=== PATIENT | female | born 1965 | race Caucasian/White ===

== ENCOUNTER → 2016-11-21 | Outpatient (CLI) | payer OTHER ==
[~2016-11-21] MED LIST: AUGMENTIN875 MG PO; NAPROSYN500 MG PO; NAPROXEN500 MG PO; NORCO 5/3251 TABLET PO; PRILOSEC20 MG PO
== END | disposition home or self-care (01) ==
LOC: NUC 08:16
DX: K21.9 Gastro-esophageal reflux disease without esophagitis (principal)
CPT/HCPCS: 78264; A9541

== ENCOUNTER 2017-09-19 21:09 | Inpatient (IN) | payer OTHER ==
[~2017-09-19] VITALS: Ht 157.5 cm; Wt 105.7 kg
[~2017-09-19 21:09] MED LIST changes: +OMEPRAZOLE40 M1 PO; -PRILOSEC20 MG PO
[2017-09-19 21:58] LABS: HEMATOCRIT 45.7 % (36.0-46.0); HEMOGLOBIN 15.7 G/DL (11.9-15.5); MCH 32.2 PG (29.0-34.0); MCHC 34.4 G/DL (30.0-36.0); MCV 93.6 FL (83-99); PLATELET COUNT 236 K/uL (156-360); RBC DIS.WIDTH-CV 13.7 % (11.8-14.6); RBC DIS.WIDTH-SD 46.7 % (39-53); RED BLOOD COUNT 4.88 M/uL (3.80-5.20); WHITE BLOOD COUNT 9.1 K/uL (4.1-10.2)
[2017-09-19 22:15] LABS: CHLORIDE 108 mEq/L (99-109); POTASSIUM 3.6 mEq/L (3.7-5.4); SODIUM 143 mEq/L (136-147)
[2017-09-19 22:17] LABS: GLUCOSE 120 mg/dL (70-99)
[2017-09-19 22:19] LABS: TROP-I INTERPRETATION NEGATIVE; TROPONIN-I 0.08 ng/mL (0.0-0.30)
[2017-09-19 22:21] LABS: CREATININE 0.7 mg/dL (0.6-1.3); GFR ESTIMATE (CALCULATED) > 59 mL/min/
[2017-09-19 22:22] LABS: UREA NITROGEN (BUN) 7 mg/dL (9-23)
[2017-09-19] MEDS ORDERED: LOSARTAN POTASS50 MG PO (23:17)
[2017-09-19] MEDS ORDERED: CYANOCOBALAM1000 MCG PO (23:19)
[2017-09-19] MEDS ORDERED: IRON325 M1 PO (23:20)
[2017-09-20 04:54] LABS: MCH 32.1 PG (29.0-34.0); MCHC 34.1 G/DL (30.0-36.0); PLATELET COUNT 243 K/uL (156-360); RBC DIS.WIDTH-CV 13.8 % (11.8-14.6); RBC DIS.WIDTH-SD 46.7 % (39-53); RED BLOOD COUNT 4.68 M/uL (3.80-5.20); WHITE BLOOD COUNT 10.3 K/uL (4.1-10.2)
[2017-09-20 04:55] LABS: CHLORIDE 108 mEq/L (99-109); POTASSIUM 3.8 mEq/L (3.7-5.4); SODIUM 142 mEq/L (136-147)
[2017-09-20 04:57] LABS: GLUCOSE 110 mg/dL (70-99)
[2017-09-20 05:01] LABS: CREATININE 0.7 mg/dL (0.6-1.3); GFR ESTIMATE (CALCULATED) > 59 mL/min/
[2017-09-20 05:02] LABS: UREA NITROGEN (BUN) 7 mg/dL (9-23)
[2017-09-20 05:07] LABS: TROP-I INTERPRETATION POSITIVE
[2017-09-20 05:10] LABS: TROPONIN-I 3.43 ng/mL (0.0-0.30)
[2017-09-20 05:38] LABS: ALBUMIN 3.7 G/DL (3.2-4.8); ALKALINE PHOSPHATASE 48 IU/L (3-129); ALT (GPT) 27 IU/L (3-49); AST (GOT) 27 IU/L (2-34); LIPASE 9 U/L (1.0-51.0); TOTAL BILIRUBIN 0.3 MG/DL (0.0-1.0); TOTAL PROTEIN 6.4 G/DL (6.4-8.3)
[2017-09-20 06:28] LABS: PTT 31.7 SEC (25-37)
[2017-09-20 10:16] LABS: TROP-I INTERPRETATION POSITIVE; TROPONIN-I 6.11 ng/mL (0.0-0.30)
[2017-09-20 12:49] LABS: INTER. NORMALIZED RATIO 1.1
[2017-09-20 13:09] VITALS: BP 133/94
[2017-09-20 13:13] LABS: PTT 182.8 SEC (25-37)
[2017-09-20 13:29] VITALS: BP 133/94
[2017-09-20 16:09] LABS: TROPONIN-I 6.11 ng/mL (0.0-0.30)
[2017-09-20 16:10] LABS: TROP-I INTERPRETATION POSITIVE
[2017-09-20 17:34] VITALS: BP 133/88
[2017-09-20 18:00] VITALS: BP 126/82
[2017-09-20 23:36] VITALS: BP 128/90
[2017-09-21 08:16] LABS: BASOPHIL (%) 0.7 % (0-1); BASOPHIL COUNT 0.1 K/uL (0-0.1); EOSINOPHIL (%) 1.7 % (0-5); EOSINOPHIL COUNT 0.2 K/uL (0-0.3); HEMOGLOBIN 15.8 G/DL (11.9-15.5); IMMATURE GRANULOCYTE (%) 0.4 % (0.0-0.7); LYMPHOCYTE (%) 41.7 % (15-42); LYMPHOCYTE COUNT 4.2 K/uL (1.0-2.8); MCHC 32.9 G/DL (30.0-36.0); MCV 94.3 FL (83-99); MONOCYTE COUNT 0.7 K/uL (0-0.8); NEUTROPHIL (%) 48.5 % (45-76); NEUTROPHIL COUNT 4.8 K/uL (1.8-6.4); PLATELET COUNT 242 K/uL (156-360); RBC DIS.WIDTH-SD 48.5 % (39-53); RED BLOOD COUNT 5.09 M/uL (3.80-5.20)
[2017-09-21 08:38] LABS: CHLORIDE 104 MEQ/L (99-109); CREATININE 0.8 MG/DL (0.6-1.3); GFR ESTIMATE (CALCULATED) > 59 mL/min/; GLUCOSE 102 mg/dL (70-99); SODIUM 143 MEQ/L (136-147); UREA NITROGEN (BUN) 12 mg/dL (9-23)
[2017-09-21 09:08] VITALS: BP 117/74
[2017-09-21 11:21] VITALS: BP 96/57
[2017-09-21 16:19] VITALS: BP 133/94
[2017-09-21 20:05] VITALS: BP 118/69
[2017-09-21 23:38] VITALS: BP 115/76
[2017-09-22 04:06] VITALS: BP 127/78
[2017-09-22 05:29] LABS: HEMATOCRIT 42.5 % (36.0-46.0); HEMOGLOBIN 14.1 G/DL (11.9-15.5); MCHC 33.2 G/DL (30.0-36.0); MCV 93.4 FL (83-99); PLATELET COUNT 194 K/uL (156-360); RBC DIS.WIDTH-CV 13.7 % (11.8-14.6); RBC DIS.WIDTH-SD 46.9 % (39-53); RED BLOOD COUNT 4.55 M/uL (3.80-5.20); WHITE BLOOD COUNT 9.2 K/uL (4.1-10.2)
[2017-09-22 08:44] VITALS: BP 119/70
[2017-09-22 11:29] VITALS: BP 128/73
[2017-09-22 15:57] VITALS: BP 127/90
[2017-09-22] MEDS ORDERED: ATORVASTATIN CA40 MG PO (17:30)
[2017-09-22] MEDS ORDERED: LOPRESSOR25 MG PO (17:30)
[2017-09-22] MEDS ORDERED: ASPIRIN EC325 MG PO (17:31)
== END 2017-09-22 18:10 | disposition home or self-care (01) | DRG 281 ==
LOC: EME 21:09 → EDOF 09-20 01:23 → ENRESERV 09-20 01:25 → EDOF 09-20 05:55 → 4EAST 09-20 05:55 → ENRESERV 09-20 05:56 → 4EAST 09-20 12:54
PROVIDERS: Emergency Medicine; Hospitalist; Internal Medicine
DX: I21.4 Non-ST elevation (NSTEMI) myocardial infarction (principal); I10 Essential (primary) hypertension; E78.5 Hyperlipidemia, unspecified; K21.9 Gastro-esophageal reflux disease without esophagitis; K44.9 Diaphragmatic hernia without obstruction or gangrene; F17.210 Nicotine dependence, cigarettes, uncomplicated; E66.9 Obesity, unspecified; Z68.41 Body mass index [BMI] 40.0-44.9, adult
CPT/HCPCS: 71046; 80048; 80076; 83690; 84484; 85025; 85027; 85610; 85730; 93005; 99281; 99285; C1769; C1887; J1644; J2250; J3010; J7030